=== PATIENT | female | born 2000 | race Caucasian/White ===

== ENCOUNTER 2023-07-22 10:19 | Outpatient (OUT) | payer SELFPAY ==
[2023-07-22 10:38] LABS: Basophils Absolute Auto 0.1 10^3/uL (0.0-0.1); Basophils Percent Auto 0.9 % (0.2-2.0); Eosinophils Absolute Auto 0.2 10^3/uL (0.0-0.7); Eosinophils Percent Auto 2.4 % (0.9-7.0); Hematocrit 43.6 % (36.0-48.0); Hemoglobin 14.6 g/dL (12.0-16.0); Immature Granulocytes Abs Auto 0.03 10^3/uL (0.00-0.03); Immature Granulocytes Pct Auto 0.4 % (0.0-0.5); Lymphocytes Absolute Auto 2.6 10^3/uL (1.2-3.8); Lymphocytes Percent Auto 37.8 % (20.5-60.0); Mean Corpuscular HGB Conc 33.5 g/dL (29.9-35.2); Mean Corpuscular Hemoglobin 29.7 pg (26.7-34.0); Mean Corpuscular Volume 88.6 fL (81.0-99.0); Mean Platelet Volume 10.2 fL (9.5-13.5); Monocytes Absolute Auto 0.5 10^3/uL (0.3-0.8); Monocytes Percent Auto 7.5 % (1.7-12.0); Neutrophils Absolute Auto 3.6 10^3/uL (1.4-6.5); Platelet Count 243 10^3/uL (150-450); Red Blood Count 4.92 10^6/uL (4.20-5.40); Red Cell Distribution Width 12.2 % (11.0-15.0)
--- NOTE | 2023-07-22 10:44 | US_ITS ---
The [address] [address] Patient Name: COBY LUNA MRN: [id number] date: 2000 Sex: F Assigned Patient Location: LAB Current Patient Location: LAB Accession/Order Number: [id number] Exam Date: 07/22/2023 10:45 Report Date: 07/22/2023 12:57 At the request of: BRII BOLAND Procedure: US thyroid EXAMINATION: US thyroid HISTORY: Lymphadenopathy R59.1 COMPARISON: No relevant comparison available. TECHNIQUE: Sonographic images of the thyroid gland were obtained. FINDINGS: The right thyroid lobe is normal in size, contour and homogeneous echotexture measuring 4.0 x 1.0 x 1.6 cm. 5 mm area of hyperechogenicity along the inferior thyroid gland possibly a parathyroid gland The thyroid isthmus measures 3 mm, normal. The left thyroid lobe is normal in size, contour and homogeneous echotexture measuring 4.0 x 1.3 x 1.37 m. Identified in the left neck corresponding to the patient's palpable abnormality are 2 areas of hypoechogenicity measuring 1.2 x 0.8 x 0.3 cm and 0.7 x 0.6 x 0.4 cm. 2 lymph nodes are suspected US/US thyroid IMPRESSION: 2 normal size left neck lymph nodes No significant thyroid nodule Electronically authenticated by: KANWAL ROY Date: 07/22/2023 12:57
[2023-07-22 15:00] LABS: Alanine Aminotransferase 22 U/L (14-59); Albumin Globulin Ratio 0.9; Alkaline Phosphatase 74 U/L (46-116); Anion Gap 13.5; Aspartate Amino Transferase 15 U/L (15-37); BUN Creatinine Ratio 11.8; Bilirubin Total 0.3 mg/dL (0.2-1.0); Calcium 9.1 mg/dL (8.5-10.1); Carbon Dioxide 27.7 mmol/L (21.0-32.0); Chloride 103 mmol/L (98-107); Estimated GFR (African America >60 (>=60); Estimated GFR (Non-African Ame >60 (>=60); Globulin 4.3 g/dL; Glucose 91 mg/dL (74-106); Potassium 3.2 mmol/L (3.5-5.1); Sodium 141 mmol/L (136-145); Total Protein 8.3 g/dL (6.4-8.2)
[2023-07-23 15:08] LABS: EBV Ab VCA, IgG 94.8 U/mL (0.0-17.9); EBV Ab VCA, IgM <36.0 U/mL (0.0-35.9)
== END 2023-07-22 10:20 | disposition home or self-care (01) ==
LOC: LAB 10:21
PROVIDERS: PCP Family Medicine; Visit Provider Family Medicine
DX: R59.1 Generalized enlarged lymph nodes (principal)
CPT/HCPCS: 36415; 76536; 80053; 85025; 86664; 86665

== ENCOUNTER 2023-09-11 14:03 | Outpatient (OUT) | payer SELFPAY ==
[2023-09-11 14:28] LABS: Basophils Percent Auto 0.5 % (0.2-2.0); Eosinophils Absolute Auto 0.1 10^3/uL (0.0-0.7); Eosinophils Percent Auto 1.7 % (0.9-7.0); Hematocrit 45.8 % (36.0-48.0); Hemoglobin 15.3 g/dL (12.0-16.0); Immature Granulocytes Abs Auto 0.03 10^3/uL (0.00-0.03); Immature Granulocytes Pct Auto 0.4 % (0.0-0.5); Lymphocytes Absolute Auto 3.1 10^3/uL (1.2-3.8); Lymphocytes Percent Auto 38.3 % (20.5-60.0); Mean Corpuscular HGB Conc 33.4 g/dL (29.9-35.2); Mean Corpuscular Hemoglobin 29.1 pg (26.7-34.0); Mean Corpuscular Volume 87.2 fL (81.0-99.0); Monocytes Absolute Auto 0.5 10^3/uL (0.3-0.8); Monocytes Percent Auto 5.9 % (1.7-12.0); Neutrophils Absolute Auto 4.3 10^3/uL (1.4-6.5); Neutrophils Percent Auto 53.2 % (43.0-75.0); Platelet Count 298 10^3/uL (150-450); Red Blood Count 5.25 10^6/uL (4.20-5.40); White Blood Count 8.1 10^3/uL (4.0-11.0)
[2023-09-11 15:08] LABS: Alanine Aminotransferase 19 U/L (14-59); Alkaline Phosphatase 73 U/L (46-116); Anion Gap 12.7; Aspartate Amino Transferase 12 U/L (15-37); Bilirubin Total 0.4 mg/dL (0.2-1.0); Calcium 9.7 mg/dL (8.5-10.1); Carbon Dioxide 28.6 mmol/L (21.0-32.0); Chloride 103 mmol/L (98-107); Estimated GFR (African America >60 (>=60); Estimated GFR (Non-African Ame >60 (>=60); Glucose 106 mg/dL (74-106); Potassium 3.3 mmol/L (3.5-5.1); Sodium 141 mmol/L (136-145)
[2023-09-11 15:10] LABS: Mono Screen NEGATIVE (NEGATIVE)
== END 2023-09-11 14:04 | disposition home or self-care (01) ==
LOC: LAB 14:06
PROVIDERS: PCP Family Medicine; Visit Provider Family Medicine
DX: J02.0 Streptococcal pharyngitis (principal); R53.83 Other fatigue
CPT/HCPCS: 36415; 80053; 85025; 86308

== ENCOUNTER 2023-11-25 12:56 | Outpatient (OUT) | payer SELFPAY ==
--- NOTE | 2023-11-25 13:04 | MR_ITS ---
The [place] [id number] Patient Name: COBY LUNA MRN: [id number] date: 2000 Sex: F Assigned Patient Location: MRI Current Patient Location: Accession/Order Number: [id number] Exam Date: 11/25/2023 13:15 Report Date: 12/01/2023 13:13 At the request of: BRII BOLAND Procedure: MR ankle RT wo con EXAM: MR ankle RT wo con HISTORY: Ligament tear COMPARISON: None. TECHNIQUE: MRI images obtained with multiple sequences. MRI of the right ankle without contrast. Sequences obtained by standard department protocol. FINDINGS: Moderate ankle joint effusion. Bone marrow edema of the talar dome medially and laterally, consistent with contusions. Achilles tendon and plantar fascia are intact. Extensor, flexor and peroneal tendons are intact. Anterior and posterior syndesmotic ligaments are intact. Thickening and increased signal of the anterior talofibular ligament, consistent with sprain/tearing. Thickening and increased signal the calcaneofibular ligament, consistent with sprain/tearing. Posterior talofibular ligament is intact. Subcutaneous soft tissue edema along the lateral aspect of the ankle joint. Deltoid ligament fibers are intact. No abnormal signal of the plantar musculature. MR/MR ankle RT wo con IMPRESSION: 1. Sprain/tearing of the anterior talofibular ligament and the calcaneofibular ligament. There is increased signal and thickening of the cervical ligament fibers. 2. Moderate ankle joint effusion. 3. Edema of the talus, consistent with contusion. 4. No acute tendinous abnormality. Electronically authenticated by: GERARDO HELMS Date: 12/01/2023 13:13
== END 2023-11-25 12:57 | disposition home or self-care (01) ==
LOC: MRI 12:56
PROVIDERS: PCP Family Medicine; Visit Provider Family Medicine
DX: T14.8XXA Other injury of unspecified body region, initial encounter (principal); S93.491A Sprain of other ligament of right ankle, initial encounter; M25.471 Effusion, right ankle
CPT/HCPCS: 73721